=== PATIENT | male | born 1985 | race Caucasian/White ===

== ENCOUNTER 2017-11-19 20:42 | Emergency (ER) | payer BC ==
[2017-11-20] MEDS: HYDROCODONE/APAP (5/325) TAB PO (01:11)
[2017-11-20] MEDS: KETOROLAC 15 MG INJ IM (01:12)
== END 2017-11-20 01:59 | disposition home or self-care (01) ==
LOC: E/R 11-20 01:59
DX: S02.5XXA Fracture of tooth (traumatic), initial encounter for closed fracture (principal); S09.90XA Unspecified injury of head, initial encounter; S89.92XA Unspecified injury of left lower leg, initial encounter; S69.91XA Unspecified injury of right wrist, hand and finger(s), initial encounter; R11.0 Nausea; R40.2142 Coma scale, eyes open, spontaneous, at arrival to emergency department; R40.2252 Coma scale, best verbal response, oriented, at arrival to emergency department; R40.2362 Coma scale, best motor response, obeys commands, at arrival to emergency department; V49.9XXA Car occupant (driver) (passenger) injured in unspecified traffic accident, initial encounter; Z87.891 Personal history of nicotine dependence
CPT/HCPCS: 12001; 70450; 70486; 71045; 72125; 73110-RT; 73562; 96372; 99285-25